=== PATIENT | male | born 1985 | race Caucasian/White ===

== ENCOUNTER 2018-12-24 13:11 | Emergency (ER) | payer OTHER ==
[~2018-12-24] VITALS: Ht 188 cm; Wt 123.0 kg
--- NOTE | 2018-12-24 14:47 | NUR ---
PATIENT PRESENTS TO ED TODAY FOR RASH/HIVES OVER GENERALIZED BODY STARTING LAST , REPORTS COMING IN CONTACT WITH [facility] 3 WEEKS AGO. DENIES SOB/CP, NADN. SEEN LAST MON AT IN [place], PRESCRIBED PREDNISONE, BENADRYL, AND 2 ABX. FOR INFECTION IN LT KNEE PER PATIENT. AWAITING MD ORDERS, CALL LIGHT WITHIN REACH.
[2018-12-24] MEDS ORDERED: DIPH25CA61 PO (14:52)
[2018-12-24] MEDS ORDERED: PRED50TA PO (14:53)
[2018-12-24] MEDS ORDERED: DOXY100C15 PO (14:53)
[2018-12-24] MEDS ORDERED: CEFD300C37 PO (14:53)
[2018-12-24] MEDS ORDERED: EPINEPHRINE 1 MG/ML, 1ML SQ ONE (15:30)
[2018-12-24] MEDS ORDERED: EPINEPHRINE 1 MG/ML, 1ML ONE (15:34)
--- NOTE | 2018-12-24 15:40 | NUR ---
NEW ORDERS, MEDICATION ADMINISTERED PER ORDER, ARC CUTTER ON PATIENT, PATIENT SITTING IN GURNEY, WATCHING TV. NADN. VS UPDATED IN CHART. NO ADDITIONAL NEEDS.
[2018-12-24 15:41] VITALS: BP 137/80
--- NOTE | 2018-12-24 16:58 | NUR ---
PATIENT REPORTS MEDICATION HAVING MINIMAL RELIEF. NADN. PATIENT SITTING IN RNEHALEM, WATCHING TV.
--- NOTE | 2018-12-24 17:14 | NUR ---
Patient/Caregiver given discharge instructions and they have confirmed that they understand the instructions. Patient ambulatory with steady gait.
== END 2018-12-24 17:16 | disposition home or self-care (01) ==
LOC: ED 16:45
DX: L23.7 Allergic contact dermatitis due to plants, except food (principal)
CPT/HCPCS: 96372; 99283; J0171; J7512